=== PATIENT | female | born 1995 | race Two or more races ===

== ENCOUNTER 2020-05-27 21:22 | Emergency (ER) | payer SELFPAY ==
[~2020-05-27] VITALS: Ht 157.5 cm; Wt 71.3 kg
--- NOTE | 2020-05-27 21:46 | NUR ---
PT AMBULATED TO ROOM, on cr monitor, a&ox4, c/o pain to forehead, and starts in the nasal area, and goes out to the sides.
--- NOTE | 2020-05-27 22:21 | NUR ---
PA in to room to eval pt.
[2020-05-27] MEDS ORDERED: IBUPROFEN 200 MG TABLET PO ONE (22:30)
[2020-05-27] MEDS ORDERED: DIPHENHYDRAMINE 25 MG CAPSULE PO ONE (22:30)
[2020-05-27] MEDS ORDERED: PROMETHAZINE 25 MG/ML, 1ML IM ONE (22:30)
[2020-05-27] MEDS ORDERED: DIPHENHYDRAMINE 25 MG CAPSULE ONE ×2 (22:31→22:32)
[2020-05-27] MEDS ORDERED: PROMETHAZINE 25MG TABLET ONE (22:31)
[2020-05-27] MEDS ORDERED: IBUPROFEN 200 MG TABLET ONE (22:31)
[2020-05-27] MEDS ORDERED: PROMETHAZINE 25MG TABLET PO STA (22:37)
--- NOTE | 2020-05-27 23:38 | NUR ---
no acute distress and pt pain level at this time is 3/10. when she came in it was 8/10. resting comfortably, good aeration and oxygenation
[2020-05-27 23:39] VITALS: BP 111/68
== END 2020-05-27 23:48 | disposition home or self-care (01) ==
LOC: ED 23:25
DX: G43.101 Migraine with aura, not intractable, with status migrainosus (principal); H53.8 Other visual disturbances
CPT/HCPCS: 70450; 99284; Q0163; Q0169

== ENCOUNTER 2020-09-23 17:08 | Emergency (ER) | payer SELFPAY ==
[~2020-09-23] VITALS: Ht 157.5 cm; Wt 74.6 kg
[2020-09-23 18:00] LABS: BASOPHILS % (AUTO) 1 % (0-1); EOSINOPHILS % (AUTO) 2 % (1-7); LYMPHOCYTES % (AUTO) 23 % (22-44); MD NO; MEAN CORPUSCULAR HEMOGLOBIN 28.2 pg (27.0-34.8); MEAN CORPUSCULAR HGB CONC 34.1 g/dL (32.4-35.8); MEAN PLATELET VOLUME 7.9 fL (7.4-10.4); MONOCYTES % (AUTO) 5 % (2-9); NEUTROPHILS % (AUTO) 69 % (42-75); PLATELET COUNT 379 x10^3/uL (130-400); RED BLOOD COUNT 4.72 x10^6/uL (3.82-5.3)
[2020-09-23 18:13] LABS: ALBUMIN 4.1 g/dL (3.4-5.0); ANION GAP 6 mmol/L (5-15); CALCIUM 8.6 mg/dL (8.5-10.1); CHLORIDE 110 mmol/L (98-107); CREATININE 0.69 mg/dL (0.55-1.02)
[2020-09-23 20:21] VITALS: BP 121/64
== END 2020-09-23 20:23 | disposition home or self-care (01) ==
LOC: ED 20:04
DX: R42 Dizziness and giddiness (principal); R20.2 Paresthesia of skin; R94.31 Abnormal electrocardiogram [ECG] [EKG]; G43.909 Migraine, unspecified, not intractable, without status migrainosus
CPT/HCPCS: 36415; 80048; 82040; 84703; 85025; 93005; 99284